=== PATIENT | female | born 1965 | race Hispanic/Latino ===

== ENCOUNTER 2016-12-12 07:33 | Outpatient (CLI) | payer MEDICAID ==
[2016-12-12] MEDS ORDERED: LEXISCAN IV ONE ×2 (09:20→09:27)
[2016-12-12 13:18] VITALS: BP 143/65
--- NOTE | 2016-12-12 22:39 | Treadmill Report ---
ORDERING PHYSICIAN: Dr. Genesis Cervantes. FINDINGS: This is a fair quality myocardial perfusion scan limited by the patient's body habitus. There is no scintigraphic evidence of myocardial ischemia. The left ventricle is normal in size and systolic function. The left ventricular ejection fraction is measured at 59%. There is normal wall motion and wall thickening noted on gated imaging. CONCLUSION: Normal perfusion scan. JOB# [id number] [facility]
== END 2016-12-12 07:34 | disposition home or self-care (01) ==
LOC: CARD 07:33
DX: R07.9 Chest pain, unspecified (principal)
CPT/HCPCS: 78452; 93017; A9502; J2785